=== PATIENT | female | born 1990 | race American Indian/Alaskan Native ===

== ENCOUNTER 2019-07-28 16:27 | Emergency (ER) | payer OTHER, SELFPAY ==
[2019-07-28 16:29] VITALS: BP 127/69; PULSE 91; RESP 15; TEMP 36.9; O2SAT 96; BMI 29.3
--- NOTE | 2019-07-28 16:55 | RAD_ITS ---
STUDY: X-RAY - UNILATERAL RIBS ( LEFT ) WITH CHEST REASON FOR EXAM: Female, 28 years old. PT WITH LEFT LOWER RIB PAIN X 1 MONTH, WORSE THE LAST TWO DAYS. PAIN WORSE WITH DEEP INSPIRATION. DENIES CP/SOB. TECHNIQUE - RIBS: 4 view(s) of the ribs. TECHNIQUE - CHEST: PA COMPARISON: None. FINDINGS - RIBS: There is questionable deformity of the inferior cortical margin of the posterior left 10th rib only seen on one view likely artifactual related to superimposed breast tissue. FINDINGS - CHEST: The lungs are clear and expanded. There is no demonstrated pleural abnormality. Normal size heart. Normal mediastinum and rosemary. Normal visualized pulmonary arteries. Normal visualized aortic arch and descending thoracic aorta. Normal visualized thoracic spine. Normal visualized ribs, clavicles, and shoulders. There is no demonstrated abnormality of the visualized soft tissue structures of the upper abdomen. RAD/Ribs Uni Min 3V w/PA Chest IMPRESSION: RIBS: No definitive evidence for acute rib fractures.. CHEST: Normal x-ray examination of the chest. Electronically Signed: Adan Wise MD at 17:13 EDT , Service support ,
--- NOTE | 2019-07-28 17:03 | ED.VISSUMM ---
- ER Visit Summary Date of Service: 07/28/19 Chief Complaint: Left sided rib pain History of Present Illness: The patient is a 28 F presenting with left-sided rib pain. States this has been ongoing for the past 1 month but has worsened over the past 2 to 3 days. She states she saw her primary care physician and they prescribed her medication. She is not sure what medication she was prescribed. She denies shortness of breath. Denies fever or cough. Denies recent travel, history of PE/DVT or recent surgeries. No trauma. She states pain is worse with deep inspiration and with movement. No other complaints. Physical Examination: Vitals are stable. Patient is afebrile. Alert no acute distress. HEENT exam is unremarkable. Neck is supple. Lungs are clear and equal bilaterally. Heart is regular rate and rhythm. Left lateral chest wall tenderness with no crepitus Abdomen is soft nontender nondistended. No guarding or rebound Extremities are unremarkable. Skin is warm and dry. No focal neurologic deficit. Remainder of exam is unremarkable. Emergency Department Course and Treatment: Left rib series shows RIBS: No definitive evidence for acute rib fractures. CHEST: Normal x-ray examination of the chest. D-dimer normal, hCG negative. On reevaluation, patient is resting comfortably. She is given prescription for Naprosyn and advised to follow-up with her primary care physician. Advised return to ED for worsening complaints. Disposition: Discharge home Impression: Chest wall pain This note was generated with [facility] dictation software. It may contain incorrect words, spelling, and punctuation that were not noted in review of the chart prior to signing ED Disposition - Plan for ED Patient: Instructions: ED CHEST PAIN [place] Prescriptions: Naproxen [Naprosyn] 500 mg PO BID PRN #20 tab Prescription Printed Referrals: [facility] Doctor,Out of [NON-STAFF] -
[2019-07-28 17:21] LABS: D-Dimer Quantitative (DVT/PE) 0.39 FEU/ug/m (0.27-0.49)
[2019-07-28 17:35] LABS: Internal QC Validated? YES +Cl - CLEAR BKGD; Pregnancy, Serum, hCG Quali. NEGATIVE Negative
--- NOTE | 2019-07-28 18:11 | ED.DEP ---
ED Disposition - Plan for ED Patient: Instructions: ED CHEST PAIN [place] Prescriptions: Naproxen [Naprosyn] 500 mg PO BID PRN #20 tab Prescription Printed Referrals: [facility],Out of [NON-STAFF] -
[2019-07-28 18:39] VITALS: BP 117/73; PULSE 89; RESP 18
== END 2019-07-28 18:40 | disposition home or self-care (01) ==
PROVIDERS: Emergency Provider Emergency Medicine
DX: R07.89 Other chest pain (principal)
CPT/HCPCS: 71101; 84703; 85379; 99282; A4216